=== PATIENT | female | born 1950 | race Caucasian/White ===

== ENCOUNTER 2019-10-01 21:50 | Inpatient (IN) | payer OTHER ==
[~2019-10-01] VITALS: Ht 165.1 cm; Wt 137.2 kg
[~2019-10-01 21:50] MED LIST: ATOR40TA PO; Aspir-Trin325 MG PO; LEVEMIR FL100 UNIT/1 SQ; LIRA0.6P SC; LISI5 PO; METO25ER PO
[2019-10-01 22:35] LABS: Calcium, Ionized (POC) 1.11 mmol/L (1.10-1.46); Chloride (POC) 107 mmol/L (98-108); Creatinine (POC) 1.8 mg/dL (0.6-1.0); Glucose (ISTAT POC) 396 mg/dL (70-99); Hemoglobin (POC) 13.6 g/dL (12.0-16.0); Potassium (POC) 5.2 mmol/L (3.5-5.5); Sodium (POC) 135 mmol/L (135-148); Total CO2 (POC) 20 mmol/L (21-32)
[2019-10-01 22:38] LABS: BASOPHILS ABSOLUTE AUTO 0.02 K/mm3 (0.00-0.23); BASOPHILS PERCENT AUTO 0 % (0-2); EOSINOPHILS PERCENT AUTO 0 % (0-6); Hematocrit 40.5 % (33.0-51.0); Hemoglobin 13.4 g/dL (11.5-16.0); IMMATURE GRAN ABSOLUTE AUTO 0.09 K/mm3 (0.00-0.10); IMMATURE GRAN PERCENT AUTO 1 % (0-1); LYMPHOCYTES ABSOLUTE AUTO 0.49 K/mm3 (0.84-5.20); LYMPHOCYTES PERCENT AUTO 3 % (21-46); MONOCYTES ABSOLUTE AUTO 0.82 K/mm3 (0.16-1.47); MONOCYTES PERCENT AUTO 6 % (4-13); Mean Corpuscular HGB 28.5 pg (26.0-34.0); Mean Corpuscular HGB Conc 33.1 g/dL (31.5-36.5); Mean Corpuscular Volume 86 fL (80-100); Mean Platelet Volume 10.7 fL (9.1-12.4); NEUTROPHILS ABSOLUTE AUTO 13.37 K/mm3 (1.96-9.15); NEUTROPHILS PERCENT AUTO 91 % (41-73); Platelet Count 265 K/mm3 (150-400); RDW Coefficient Variation 16.2 % (11.7-14.2); RDW Standard Deviation 50.1 fL (35.1-46.3); Red Blood Cell Count 4.71 M/mm3 (3.80-5.20); White Blood Cell Count 14.79 K/mm3 (4.00-11.30)
[2019-10-01 22:58] LABS: Alanine Aminotransfer (ALT/SGP 55 U/L (12-78); Albumin, Blood 2.5 g/dL (3.4-5.0); Albumin/Globulin Ratio 0.5 (0.8-1.8); Alk Phos 82 U/L (50-136); Anion Gap 11 mmol/L (6-16); Aspartate Aminotrans (AST/SGOT 286 U/L (12-37); Bilirubin, Total 1.2 mg/dL (0.1-1.0); Blood Urea Nitrogen 45 mg/dL (8-24); Bun/Creatinine Ratio 26.3 (12.0-20.0); CO2, Blood 19 mmol/L (21-32); Calcium, Blood 9.2 mg/dL (8.5-10.1); Chloride, Blood 105 mmol/L (98-108); Creatine Kinase MB 59.4 ng/mL (0.0-3.6); Creatinine, Blood 1.71 mg/dL (0.40-1.00); Ethanol (Alcohol), Blood, Med <3 mg/dL; Free Thyroxine 1.25 ng/dL (0.70-1.60); Globulin, Blood 5.5 g/dL (2.2-4.0); Glomerular Filtration Rate 31 (60-); Glucose, Blood 396 mg/dL (70-99); Potassium, Blood 5.1 mmol/L (3.5-5.5); Sodium, Blood 135 mmol/L (136-145); Troponin I 0.239 ng/mL (0.000-0.040)
[2019-10-01 23:09] LABS: Source, Urine Catheter
[2019-10-01 23:12] LABS: Bilirubin, Urine Neg (Neg); Blood, Urine 5+ (Neg); Glucose Qualitative, Urine 4+ (Neg); Ketones, Urine 1+ (Neg); Leukocyte Esterase, Urine 1+ (Neg); Nitrite, Urine Pos (Neg); Protein, Urine 4+ (Neg); Specific Gravity, Urine 1.015 (1.003-1.022); Urobilinogen, Urine NORM (Normal)
[2019-10-01 23:17] LABS: Triiodothyronine, Free 1.74 pg/mL (2.18-3.98)
[2019-10-01] MEDS ORDERED: JANTOVEN2 MG PO ×3 (23:17→23:33)
[2019-10-01 23:19] LABS: CPK Creatine Kinase 8359 U/L (26-193); Creatine Kinase MB Index 0.7 (0.0-4.0)
[2019-10-01 23:20] LABS: Appearance, Urine Clear (Clear); Color, Urine Amber (P-Yellow)
[2019-10-01] MEDS ORDERED: WARF10 PO (23:20)
[2019-10-01 23:21] LABS: Bacteria Many /hpf; Red Blood Cells, Urine 0-2 /hpf (0-2); Squamous Epithelial Cells Few /hpf (Few)
[2019-10-01] MEDS ORDERED: DULO60 (23:21)
[2019-10-01] MEDS ORDERED: DULO30 (23:22)
[2019-10-01] MEDS ORDERED: ADMELOG SO100 UNIT/1 SC (23:25)
[2019-10-01 23:26] LABS: U Amphetamine Screen Not Detected; U Barbituate Screen Not Detected; U Benzodiazapine Screen Not Detected; U Buprenorphine Screen Not Detected; U Cannabinoids Screen Not Detected; U Cocaine Screen Not Detected; U Methadone Screen Not Detected; U Methamphetamine Screen Not Detected; U Opiates Screen Not Detected; U Oxycodone Screen Not Detected; U Phencyclidine Screen Not Detected; U Propoxyphene Screen Not Detected
[2019-10-01] MEDS ORDERED: INSULANPEN (23:26)
[2019-10-01] MEDS ORDERED: METOPROLOL SUCC25 MG PO (23:31)
[2019-10-01] MEDS ORDERED: WARF10 (23:32)
[2019-10-01] MEDS ORDERED: ADMELOG SO100 UNIT/1 (23:33)
[2019-10-01] MEDS ORDERED: DULO30 PO (23:34)
[2019-10-01] MEDS ORDERED: VICTOZA 3-0.6 MG/0.1 (23:34)
[2019-10-01] MEDS ORDERED: ATORVASTATIN CA40 MG PO (23:35)
[2019-10-01] MEDS ORDERED: PRINIVIL5 MG PO (23:35)
[2019-10-01] MEDS ORDERED: BASAGLAR K100 UNIT/1 SC (23:36)
[2019-10-02 00:59] LABS: International Normalized Ratio 1.14; Prothrombin Time Results 11.9 Sec (9.7-11.5)
[2019-10-02 03:26] LABS: Hemoglobin 11.8 g/dL (11.5-16.0); Mean Corpuscular HGB 28.1 pg (26.0-34.0); Mean Corpuscular HGB Conc 32.8 g/dL (31.5-36.5); Mean Corpuscular Volume 86 fL (80-100); Platelet Count 135 K/mm3 (150-400); RDW Coefficient Variation 16.3 % (11.7-14.2); RDW Standard Deviation 49.9 fL (35.1-46.3); White Blood Cell Count 14.55 K/mm3 (4.00-11.30)
[2019-10-02 03:45] LABS: Alanine Aminotransfer (ALT/SGP 59 U/L (12-78); Albumin, Blood 2.1 g/dL (3.4-5.0); Albumin/Globulin Ratio 0.4 (0.8-1.8); Alk Phos 68 U/L (50-136); Anion Gap 11 mmol/L (6-16); Aspartate Aminotrans (AST/SGOT 309 U/L (12-37); Bilirubin, Total 0.9 mg/dL (0.1-1.0); Blood Urea Nitrogen 45 mg/dL (8-24); Bun/Creatinine Ratio 26.8 (12.0-20.0); CO2, Blood 18 mmol/L (21-32); Calcium, Blood 8.6 mg/dL (8.5-10.1); Chloride, Blood 109 mmol/L (98-108); Creatinine, Blood 1.68 mg/dL (0.40-1.00); Globulin, Blood 4.8 g/dL (2.2-4.0); Glomerular Filtration Rate 32 (60-); Glucose, Blood 320 mg/dL (70-99); Potassium, Blood 4.7 mmol/L (3.5-5.5); Sodium, Blood 138 mmol/L (136-145); Total Protein, Blood 6.9 g/dL (6.4-8.2)
--- NOTE | 2019-10-02 05:18 | NUR ---
AFIB WITH RVR DR. COLLADO NOTIFIED OF COMTINUED AFIB WITH RATE 110-140s. NEW ORDER RECEIVED.
--- NOTE | 2019-10-02 05:28 | NUR ---
ADMIT NOTE: PT C/O WEAKNESS, CONFUSION. FOUND DOWN BY FAMILY MEMBERS FOR UNKNOWN AMT OF TIME. PT IS ALERT AND ORIENTED TO SELF AND FAMILY. LUNG SOUNDS DIM IN BASES. CURRENTLY ON 2L NC, SP02 >90%. ON ADMIT PT IN A-FIB WITH RVR WITH OCC PVCS. SBP HAS HAD A WIDE RANGE FROM 90S-130S. HR TACHY IN THE 130S. BOWEL TONES ARE PRESENT X 4. PER FAMILY LAST BM 09/30/19. TEMP GARCIA IN PLACE DRAINING SMALL AMT OF DARK JOSE CARLOS URINE. ABRASION TO R HIP. DARK DISCOLORATION TO BLE. TOENAILS THICKENED AND LONG. 3 IVS- 20G RAC, 22G L HAND, 20G L FA. NS INFUSING AT 75MLS/HR. FAMILY AT BEDSIDE.
--- NOTE | 2019-10-02 05:40 | NUR ---
CALL PLACED TO DR. COLLADO RE IVF, INSULIN COVERAGE, ABX, NYSTATIN. PER TOBIAS DC NS BOLUS AND GIVE NS AT 75MLS/HR. CHANGE BLOOD SUGAR CHECKS TO Q6 AND GIVE LANTUS NOW. CLARIFIED ABX. PER TOBIAS KEEP ROCEPHIN ONLY ABX.
[2019-10-02 07:21] LABS: Adenovirus Not Detected (NOT DETECT); Bordetella pertussis Not Detected (NOT DETECT); Chlamydophila pneumoniae Not Detected (NOT DETECT); Coronavirus 229E Not Detected (NOT DETECT); Coronavirus HKU1 Not Detected (NOT DETECT); Coronavirus NL63 Not Detected (NOT DETECT); Coronavirus OC43 Not Detected (NOT DETECT); Human Metapneumovirus Not Detected (NOT DETECT); Human Rhinovirus/Enterovirus Not Detected (NOT DETECT); Influenza A Not Detected (NOT DETECT); Influenza A/2009-H1 Not Detected (NOT DETECT); Influenza A/H1 Not Detected (NOT DETECT); Influenza A/H3 Not Detected (NOT DETECT); Influenza B Not Detected (NOT DETECT); Mycoplasma pneumoniae Not Detected (NOT DETECT); Parainfluenza Virus 1 Not Detected (NOT DETECT); Parainfluenza Virus 2 Not Detected (NOT DETECT); Parainfluenza Virus 3 Not Detected (NOT DETECT); Parainfluenza Virus 4 Not Detected (NOT DETECT); Respiratory Syncytial Virus Not Detected (NOT DETECT)
--- NOTE | 2019-10-02 07:43 | NUR ---
ASSESSMENT- PT ASLEEP, AWAKENS TO NAME, ABLE TO ANSWER BRIEF QUESTIONS WITH ONE WORD ANSWERS. BACK TO SLEEP QUICKLY. PUPILS SMALL, REACTIVE. MOVES EXTREMITIES EXCEPT NO MOVEMENT LEFT LEG. STATES WILL OPEN EYES WHEN ASKED BUT DOES NOT. ABLE TO MOVE TO COMMAND, VERY WEAK. ASSISTANT PROFESSOR OF SURGERY VERY WEAK. NS AT 75 CC/HR. UO VIA GARCIA. BEDSIDE ULTRASOUND BEING DONE
--- NOTE | 2019-10-02 08:50 | NUR ---
REPOSITIONED FOR ECHO. PREFERS TO SLEEP, DOES AWAKEN TO NAME, OPENS EYES. VSS
--- NOTE | 2019-10-02 10:12 | NUR ---
ECHOCARDIOGRAM COMPLETED
--- NOTE | 2019-10-02 11:18 | NUR ---
BATH, LINEN CHANGE DONE. SKIN REDDENED UNDER FOLDS, NYSTATIN APPLIED. POOR HYGIENE. MORE AWAKE, EYES OPEN SPONTANEOUSLY. ABLE TO ANSWER IS IN HOSPITAL. DENIES PAIN. UPDATE TO DR. TERRY-ORDERS FOR HEPARIN GTT. UNABLE TO PERFORM SWALLOW TEST-UNABLE TO PARTICIPATE. ORAL CARE DONE
--- NOTE | 2019-10-02 12:23 | NUR ---
HEPARIN GTT STARTED PER ORDERS. DR. LIPSCOMB CALLED UNIT-PT WAS DISCHARGED FROM [facility] IN [place] SO HOSPITALIST TO ASSUME CARE. NOTIFIED DR. GIRALDO AND UPDATE GIVEN.
--- NOTE | 2019-10-02 12:42 | NUR ---
DR. GIRALDO HERE-UPDATED. PT UNCHANGED. OXYGEN SATURATIONS 99%-REMOVED NASAL CANNULA
--- NOTE | 2019-10-02 15:16 | NUR ---
PT WITH NEURO UNCHANGED. ORAL CARE DONE, REPOSITIONED.VSS
--- NOTE | 2019-10-02 16:00 | NUR ---
MEDICATION CLARIFICATION- FAMILY STATES DO NOT KNOW COUMADIN DOSAGE. PT UNABLE TO STATE DOSE
--- NOTE | 2019-10-02 16:10 | NUR ---
UPDATE TO PT'S DIL CL[place].
--- NOTE | 2019-10-02 17:55 | NUR ---
PT AWAKENS EASILY TO NAME, BACK TO SLEEP QUICKLY. ATTEMPT TO WEAN OFF NASAL CANNULA-SATURATIONS DECREASED TO 88%-TO 98% WITH CANNULA. HEPARIN GTT INFUSING AT 13 UNITS/KG/HR AND NS 75 CC/HR. UO MARGINAL, JOSE CARLOS VIA GARCIA. CONTINUE AFIB RATE 100-110'S. BP STABLE.
[2019-10-03 03:56] LABS: BASOPHILS ABSOLUTE AUTO 0.04 K/mm3 (0.00-0.23); BASOPHILS PERCENT AUTO 0 % (0-2); EOSINOPHILS ABSOLUTE AUTO 0.12 K/mm3 (0.00-0.68); EOSINOPHILS PERCENT AUTO 1 % (0-6); Hematocrit 33.4 % (33.0-51.0); Hemoglobin 10.6 g/dL (11.5-16.0); IMMATURE GRAN ABSOLUTE AUTO 0.05 K/mm3 (0.00-0.10); IMMATURE GRAN PERCENT AUTO 1 % (0-1); LYMPHOCYTES ABSOLUTE AUTO 1.06 K/mm3 (0.84-5.20); LYMPHOCYTES PERCENT AUTO 11 % (21-46); MONOCYTES ABSOLUTE AUTO 1.04 K/mm3 (0.16-1.47); MONOCYTES PERCENT AUTO 10 % (4-13); Mean Corpuscular HGB 27.5 pg (26.0-34.0); Mean Corpuscular HGB Conc 31.7 g/dL (31.5-36.5); Mean Corpuscular Volume 87 fL (80-100); Mean Platelet Volume 11.3 fL (9.1-12.4); NEUTROPHILS ABSOLUTE AUTO 7.78 K/mm3 (1.96-9.15); NEUTROPHILS PERCENT AUTO 77 % (41-73); Platelet Count 217 K/mm3 (150-400); RDW Coefficient Variation 16.9 % (11.7-14.2); RDW Standard Deviation 52.2 fL (35.1-46.3); Red Blood Cell Count 3.85 M/mm3 (3.80-5.20); White Blood Cell Count 10.09 K/mm3 (4.00-11.30)
[2019-10-03 04:12] LABS: International Normalized Ratio 1.11; Prothrombin Time Results 11.7 Sec (9.7-11.5)
[2019-10-03 04:13] LABS: Albumin, Blood 1.9 g/dL (3.4-5.0); Albumin/Globulin Ratio 0.4 (0.8-1.8); Bilirubin, Total 0.5 mg/dL (0.1-1.0); Bun/Creatinine Ratio 27.3 (12.0-20.0); Calcium, Blood 8.5 mg/dL (8.5-10.1); Creatinine, Blood 1.76 mg/dL (0.40-1.00); Globulin, Blood 4.7 g/dL (2.2-4.0); Magnesium, Blood 2.1 mg/dL (1.6-2.4); Potassium, Blood 4.2 mmol/L (3.5-5.5); Total Protein, Blood 6.6 g/dL (6.4-8.2)
--- NOTE | 2019-10-03 05:45 | NUR ---
SHIFT SUMMARY PATIENT SLEPT WELL THROGUH NIGHT. VSS. INCREASED HR WITH ACTIVITY, WOULD OCASSIONALY AWAKEN AND ATTEMPT TO REMOVE CORDS, MONITORING EQUIPMENT. EASILY REDIRECTABLE. NO WORSENING OF NEUROLOGICAL SYMPTOMS, SPEECH SEEMS MORE ORGANIZED, PATIENT IN BETTER SPIRITS. WILL CONTINUE TO MONITOR.
--- NOTE | 2019-10-03 10:27 | NUR ---
0700-ASSUMED CARE OF PT. PT IS ALERT AND ORIENTED TO SELF, FOLLOWING COMMANDS. FORGETFUL. PT IS ABLE TO RAISE ARMS EQUALLY. LEFT LEG HAS MORE WEAKNESS THAN THE RIGHT. 0730-SEEN BY DR. GIRALDO, UPDATED HER OF PT'S STATUS. THIS TIME PT IS AWARE OF HER LOCATION, DATE AND SELF. 0915-JAYDA WITH PHYSICAL AND OCCUPATIONAL THERAPY CAME BY TO EVALUATE AND TREAT PATIENT. 1000-PT IS SITTING ON THE CHAIR AT THIS TIME. ANGELA WITH SPEECH THERAPIST AT BEDSIDE EVALUATING PT. 1015-FAMILY AT BEDSIDE, UPDATED THEM OF PT'S STATUS.
--- NOTE | 2019-10-03 12:19 | NUR ---
PT HAD AN EPISODE OF VOMITING, MEDICATED WITH ZONFRAN ORDERED. 1220-PT STATED FEELING BETTER AFTER RECEIVING ZOFRAN. PT IS EATING LUNCH AT THIS TIME.
--- NOTE | 2019-10-03 17:20 | NUR ---
DR. GIRALDO WAS NOTIFIED THAT PT WAS PLACED ON RESTRAINTS DUE TO PT PULLING LINES, TUBES.
--- NOTE | 2019-10-03 18:27 | NUR ---
PT IS AWAKE NOW. EATING DINNER. PT WAS POSITIONED TO A CHOWDHURY'S POSITION FOR HER TO EAT. UPDATED DAUGHTER OF PT'S STATUS. PT SILL ON HEPARIN DRIP @ 19 UNITS/KG/HR WITH WEIGHT OF 88 KG. PT IS STILL ON AFIB WITH HR FROM LOW 100s TO 140s. PT WAS ABLE TO SIT ON THE CHAIR TODAY.
--- NOTE | 2019-10-04 00:09 | NUR ---
19:35 10/03 OBTAINED ORDER FOR BILATERAL SOFT WRIST RESTRAINTS, PATIENT PULLED IV OUT OF RIGHT FOREARM WITH LEFT HAND, HAD PULLED ALL MONITORING CABLES OUT OF MONITOR, AND WAS PULLING AT GARCIA CATHETER. NO BLOOD NOTED AROUND NOR IN GARCIA. ATTEMPTED REDIRECTION, EDUCATING ON NEED OF LINES, NO AVAIL. VSS. WILL CONTINUE TO MONITOR.
--- NOTE | 2019-10-04 03:34 | NUR ---
PATIENT TRANSFERRED TO PCU RM. 4 TO [facility] CERVANTES. VSS. NO C/O PAIN. CPAP TAKEN TO NEW ROOM, APPLIED. MEDS VERIFIED WITH RN. IT HAS BEEN A PLEASURE TAKING CARE OF THIS PATIENT.
[2019-10-04 04:09] LABS: International Normalized Ratio 1.09; Prothrombin Time Results 11.5 Sec (9.7-11.5)
--- NOTE | 2019-10-04 04:24 | NUR ---
PT RECEIVED TRANSFER FROM ICU. ALERT AND ABLE TO ANSWER SHORT QUESTIONS.EYES TRACK APPROPRIATELY.L SIDE EFFECT PER CVA DX.HEP GTT INFUSING TO CLEAR SITE AT 33.4 ML/HR.PT REQUIRING CPAP WITH FALLING ASLEEP BASELINE USE DUE TO HX SLEEP APNEA. NO O2 BLEED IN AT THIS TIME. CONT PULSE OX CURRENTLY SATS 93% GARCIA DRAINING WITH [address] STAT LOCK PLACED. PT WAS REPORTED TO HAVE HAD RESTRAINTS UNTIL 0250 PRIOR TO TRANSFER. WAS PULLING AT LINES AND GARCIA. CURRENTLY COBAN TO LINE SITE. NOT PULLING. SLEEPING WHEN UNDISTURBED. NOTED MULTIPLE ABRASIONS AND SCABS. [place] LIKE TOENAILS.
--- NOTE | 2019-10-04 04:53 | NUR ---
CONFIRMED HEPARIN RATE WITH TREMAYNE PHARMACIST OF 35.2 ML/HR.CURRENT SET TR @ 35.2 ML/HR CHECKED WITH BHARAT HODGES RN.
--- NOTE | 2019-10-04 07:16 | NUR ---
HEPARIN GTT VERIFIED WITH [facility] MONET AT HANDOFF. PT IS RESTING IN BED WITH CPAP IN PLACE. DENIES ANY NEEDS CURRENTLY
--- NOTE | 2019-10-04 07:50 | NUR ---
SUMMARY PT INCREASING IN CONFUSION AND THIS AM. PICKING AT TUBES AND CPAP. REORIENTED TO SITUATION AND REPLACED CPAP,BIOX PROBE, AND TELE. SO FAR HEP DRIP INFUSING TO CLEAR SITE.RAN TUBING THROUGH GOWN SLEEVE TO CONCEAL.
[2019-10-04 07:52] LABS: BASOPHILS ABSOLUTE AUTO 0.03 K/mm3 (0.00-0.23); BASOPHILS PERCENT AUTO 0 % (0-2); EOSINOPHILS ABSOLUTE AUTO 0.14 K/mm3 (0.00-0.68); EOSINOPHILS PERCENT AUTO 2 % (0-6); Hematocrit 33.8 % (33.0-51.0); Hemoglobin 10.6 g/dL (11.5-16.0); IMMATURE GRAN ABSOLUTE AUTO 0.04 K/mm3 (0.00-0.10); IMMATURE GRAN PERCENT AUTO 1 % (0-1); LYMPHOCYTES ABSOLUTE AUTO 1.05 K/mm3 (0.84-5.20); LYMPHOCYTES PERCENT AUTO 13 % (21-46); MONOCYTES ABSOLUTE AUTO 0.87 K/mm3 (0.16-1.47); MONOCYTES PERCENT AUTO 11 % (4-13); Mean Corpuscular HGB 27.9 pg (26.0-34.0); Mean Corpuscular HGB Conc 31.4 g/dL (31.5-36.5); Mean Corpuscular Volume 89 fL (80-100); Mean Platelet Volume 12.2 fL (9.1-12.4); NEUTROPHILS PERCENT AUTO 74 % (41-73); Platelet Count 207 K/mm3 (150-400); RDW Coefficient Variation 17.3 % (11.7-14.2); RDW Standard Deviation 55.3 fL (35.1-46.3); White Blood Cell Count 8.13 K/mm3 (4.00-11.30)
[2019-10-04 08:01] LABS: Albumin, Blood 1.8 g/dL (3.4-5.0); Albumin/Globulin Ratio 0.4 (0.8-1.8); Bilirubin, Total 0.5 mg/dL (0.1-1.0); Bun/Creatinine Ratio 30.5 (12.0-20.0); Calcium, Blood 8.4 mg/dL (8.5-10.1); Creatinine, Blood 1.51 mg/dL (0.40-1.00); Globulin, Blood 4.6 g/dL (2.2-4.0); Potassium, Blood 4.3 mmol/L (3.5-5.5); Total Protein, Blood 6.4 g/dL (6.4-8.2)
--- NOTE | 2019-10-04 17:41 | NUR ---
PT WAS EATING DINNER WHEN SHE STARTED TO COUGH/CHOCK ON A PIECE OF POTATO. WHEN PT WAS COUGHING HER O2 SAT'S WERE IN THE MID 80'S. ONCE SHE STOPPED COUGHING HER O2 RETURNED TO BASELINE MID 90'S ON ROOM AIR. DR GIRALDO WAS NOTIFIED OF INCIDENT AND ORDERS TO PLACE NPO UNTIL SPEECH SEES HER RECEIVED. PRIOR TO INCEDENT REPORT WAS GIVEN TO CAL[facility] GROSS ON MEDICAL FLOOR. CALIXTO GROSS WAS UPDATED ON THE STATUS AND PT WAS TRANSPORTED VIA BED TO ROOM 325. BELONGINGS GATHERED AND SENT WITH PT.
--- NOTE | 2019-10-04 18:02 | NUR ---
SHIFT SUMMARY: PT WAS TRANSFERRED FROM PCU IN HER BED. SHE WAS ASSISTED TO HER ROOM AND ORIENTED TO THE NURSING STAFF. PT IS A/O TO HERSELF AND HER FAMILY AND SITUATION. PER REPORT PT WAS COUGHING ON HER DINNER BEFORE COMING UP TO THE UNTI AND THE PCU NURSE NOTIFIED THE DOCTOR WHO GAVE ORDERS FOR THE PT TO BE NPO UNTIL ST EVALS HER TOMORROW. IV HEPARIN CONTINUES TO RUN ORDERED. PT IS RESTING IN BED AND IS ABLE TO MAKE HER NEEDS KNOWN. SHE HAS HER CALL LIGHT IN REACH.
--- NOTE | 2019-10-05 04:52 | NUR ---
SHIFT SUMMARY PATIENT HAS SOMEWHAT OF A FLAT AFFECT AND IS ALERT AND ORIENTED FOR THE MOST PART. SHE WAS ABLE TO SLEEP WELL MOST OF THE NIGHT BUT AROUND 0200 HER O2 SATS BEGAN TO DROP A LITTLE DUE TO HER SLEEP APNEA SO I ASKED RT TO SET HER UP ON THE CPAP IN HER ROOM.IV IN LEFT HAND PATENT AND FLUSHED. IV IN LEFT FOREARM PATENT AND INFUSING WITH HEPARIN AT A RATE OF 22MG/KG/HR OR 38.7 ML/HR. BED IN LOWEST POSITION WITH WHEELS LOCKED. CALL LIGHT WITHIN REACH. REPORT GIVEN TO ONCOMING RN.
[2019-10-05 05:16] LABS: International Normalized Ratio 1.13; Prothrombin Time Results 11.8 Sec (9.7-11.5)
[2019-10-05 05:41] LABS: Albumin, Blood 1.7 g/dL (3.4-5.0); Albumin/Globulin Ratio 0.4 (0.8-1.8); Bilirubin, Total 0.7 mg/dL (0.1-1.0); Bun/Creatinine Ratio 32.3 (12.0-20.0); Calcium, Blood 8.3 mg/dL (8.5-10.1); Creatinine, Blood 1.27 mg/dL (0.40-1.00); Globulin, Blood 4.2 g/dL (2.2-4.0); Potassium, Blood 4.2 mmol/L (3.5-5.5); Total Protein, Blood 5.9 g/dL (6.4-8.2)
--- NOTE | 2019-10-05 10:24 | NUR ---
PATIENT IS ALERT AND ORIENTED TO SELF, FAMILY AND SITUATION. SHE DOES HAVE EPISODES OF FORGETFULLNESS. SHE IS NPO. PATIENT IS COOPERATIVE WITH CARE. SHE IS INCONTINENT OF URINE, 3PA TO CHANGE ATTEND AND ROLE PATIENT. SHE IS AWAKE NOW, WATCHING TV. THE HEAD OF THE BED IS ELEVATED. ON CONTINUOUS PULSE OXIMETER WITH SATS OF 96% AND A HR RANGING FROM 90 BPM TO 120 BPM. MORNING MEDICATIONS WERE GIVEN THIS MORNING WITH SIPS OF WATER, THE PATIENT WAS SITTING IN BED IN THE CHAIR POSITION. PATIENT TOLERATED THE SMALL SIPS OF WATER BUT DOES STRUGGLE TO SWALLOW THE PILLS. WILL CONTINUE TO MONITOR.
--- NOTE | 2019-10-05 17:04 | NUR ---
PATIENT IS ALERT AND ORIENTED WITH PERIODS OF FORGETFULLNESS. SHE WEARS A CPAP WITH 2L 02 BLED INTO IT. HEPARIN DRIP WAS DC'D TODAY. PATIENT IS ON COUMADIN. MECHANICAL SOFT DIET, FEEDER, ASPIRATION PRECAUTIONS. PATIENT IS INCONTINENT, ATTENDS IN PLACE. Q2H TURNS. ST TO SEE PATIENT TOMORROW. WILL CONTINUE TO MONITOR.
[2019-10-06 05:38] LABS: BASOPHILS ABSOLUTE AUTO 0.04 K/mm3 (0.00-0.23); BASOPHILS PERCENT AUTO 1 % (0-2); EOSINOPHILS ABSOLUTE AUTO 0.29 K/mm3 (0.00-0.68); EOSINOPHILS PERCENT AUTO 4 % (0-6); Hematocrit 33.5 % (33.0-51.0); Hemoglobin 10.6 g/dL (11.5-16.0); IMMATURE GRAN ABSOLUTE AUTO 0.03 K/mm3 (0.00-0.10); IMMATURE GRAN PERCENT AUTO 0 % (0-1); LYMPHOCYTES ABSOLUTE AUTO 0.98 K/mm3 (0.84-5.20); LYMPHOCYTES PERCENT AUTO 14 % (21-46); MONOCYTES ABSOLUTE AUTO 0.93 K/mm3 (0.16-1.47); MONOCYTES PERCENT AUTO 13 % (4-13); Mean Corpuscular HGB 27.8 pg (26.0-34.0); Mean Corpuscular HGB Conc 31.6 g/dL (31.5-36.5); Mean Corpuscular Volume 88 fL (80-100); Mean Platelet Volume 11.1 fL (9.1-12.4); NEUTROPHILS ABSOLUTE AUTO 4.76 K/mm3 (1.96-9.15); NEUTROPHILS PERCENT AUTO 68 % (41-73); Platelet Count 252 K/mm3 (150-400); RDW Coefficient Variation 17.2 % (11.7-14.2); RDW Standard Deviation 54.4 fL (35.1-46.3); Red Blood Cell Count 3.81 M/mm3 (3.80-5.20); White Blood Cell Count 7.03 K/mm3 (4.00-11.30)
--- NOTE | 2019-10-06 05:38 | NUR ---
SHIFT SUMMARY PATIENT ALERT AND ORIENTED. WORE HER CPAP MOST OF THE NIGHT WHILE SLEEPING. SHE HAD NO COMPLAINTS OF PAIN. IVS PATENT AND FLUSHED. BED IN LOWEST POSITION WITH WHEELS LOCKED. CALL LIGHT WITHIN REACH. REPORT GIVEN TO ONCOMING CALIXTO.
[2019-10-06 05:52] LABS: International Normalized Ratio 1.4; Prothrombin Time Results 14.4 Sec (9.7-11.5)
[2019-10-06 06:02] LABS: Albumin, Blood 1.8 g/dL (3.4-5.0); Albumin/Globulin Ratio 0.4 (0.8-1.8); Bilirubin, Total 0.8 mg/dL (0.1-1.0); Bun/Creatinine Ratio 31.5 (12.0-20.0); Calcium, Blood 8.6 mg/dL (8.5-10.1); Creatinine, Blood 1.11 mg/dL (0.40-1.00); Globulin, Blood 4.5 g/dL (2.2-4.0); Potassium, Blood 4.4 mmol/L (3.5-5.5); Total Protein, Blood 6.3 g/dL (6.4-8.2)
--- NOTE | 2019-10-06 11:30 | NUR ---
CONTINUOUS BIOX PT FELL ASLEEP AND DESATURATED TO 80%, CPAP PLACED ON. CURRENTLY SATURATING AT >92% WITH CPAP AND 1LPM BLED IN.
--- NOTE | 2019-10-06 14:09 | NUR ---
FAMILY NOTIFY DAUGHTER (DEANN) NOTIFIED OF PT DISCHARGING TO [facility], DEANN IS ON BOARD WITH PLAN.
[2019-10-06] MEDS ORDERED: ASPI81CH PO (15:09)
[2019-10-06] MEDS ORDERED: DOCU100 PO (15:10)
[2019-10-06] MEDS ORDERED: FAMO20 PO (15:10)
[2019-10-06] MEDS ORDERED: BISA10S PR (15:10)
[2019-10-06] MEDS ORDERED: Pedi-Dri 100,0060 GM TOP (15:11)
[2019-10-06] MEDS ORDERED: SENN187 PO (15:12)
--- NOTE | 2019-10-06 15:48 | NUR ---
Discharge Summary Patient discharged to [facility]. Meds reconciled, report given to receiving nurse Mirna. Belongings will be sent with patient. Daughter (Jaqui) notified of discharge to SNF. Pt will be transported via gurney. Pt remains A/O, compliant with CPAP use. Will continue to monitor until transport arrives.
--- NOTE | 2019-10-06 17:23 | NUR ---
Personal Belongings Items were bagged and ready to go; unfortunately, personal belongings were left behind. Pt sticker attached and bag placed in usual left-behind area on Medical floor. Jaqui (daughter) notified, will p/u tomorrow before she goes visit patient at [facility].
== END 2019-10-06 16:16 | DRG 65 ==
LOC: ER 21:50 → ICUW 10-02 02:32 → MEDS 10-02 02:32 → ICUW 10-02 02:33 → PCU 10-04 03:36 → MEDS 10-04 17:41
PROVIDERS: Emergency Medicine; Internal Medicine; ADMIT Internal Medicine
DX: I63.50 Cerebral infarction due to unspecified occlusion or stenosis of unspecified cerebral artery (principal); M62.82 Rhabdomyolysis; E87.2 Acidosis; N17.9 Acute kidney failure, unspecified; I48.20 Chronic atrial fibrillation, unspecified; Z68.43 Body mass index [BMI] 50.0-59.9, adult; I24.8 Other forms of acute ischemic heart disease; Z79.4 Long term (current) use of insulin; Z79.82 Long term (current) use of aspirin; K21.9 Gastro-esophageal reflux disease without esophagitis; G47.33 Obstructive sleep apnea (adult) (pediatric); E66.01 Morbid (severe) obesity due to excess calories; Z86.73 Personal history of transient ischemic attack (TIA), and cerebral infarction without residual deficits
CPT/HCPCS: 0099U; 36415; 51702; 70450; 70544; 70551; 71045; 80047; 80053; 81001; 82140; 82550; 82553; 82947; 83605; 83735; 84439; 84443; 84481; 84484; 85014; 85025; 85027; 85610; 85730; 86850; 86900; 86901; 87040; 87086; 90686; 92526; 92610; 93005; 93010; 93306; 93880; 94660; 94762; 96365; 96375; 97162; 97166; 97530; 97535; 99285-25; G0008; G0480; J0696; J1644; J1650; J2405; J7030

== ENCOUNTER → 2019-12-23 | Outpatient (CLI) | payer OTHER ==
[~2019-12-23] MED LIST changes: +ADMELOG SO100 UNIT/1; +ADMELOG SO100 UNIT/1 SC; +ASPI81CH PO; +ATORVASTATIN CA40 MG PO; +BASAGLAR K100 UNIT/1 SC; +BISA10S PR; +DOCU100 PO; +DULO30; +DULO30 PO; +DULO60; +FAMO20 PO; +INSULANPEN; +JANTOVEN2 MG PO; +METOPROLOL SUCC25 MG PO; +PRINIVIL5 MG PO; +Pedi-Dri 100,0060 GM TOP; +SENN187 PO; +VICTOZA 3-0.6 MG/0.1; +WARF10; +WARF10 PO
[2019-12-23 09:48] LABS: International Normalized Ratio 2.32; Prothrombin Time Results 23.7 Sec (9.7-11.5)
[2019-12-23 10:27] LABS: Bun/Creatinine Ratio 22.1 (12.0-20.0); Calcium, Blood 8.7 mg/dL (8.5-10.1); Potassium, Blood 4.5 mmol/L (3.5-5.5)
== END | disposition home or self-care (01) ==
LOC: LAB RH 08:01 → EDSTATUS 10:23 → LAB RH 10:24
PROVIDERS: Family Medicine
DX: I48.20 Chronic atrial fibrillation, unspecified (principal)
CPT/HCPCS: 36415; 80048; 85610

== ENCOUNTER → 2019-12-30 | Outpatient (CLI) | payer OTHER ==
[2019-12-30 11:35] LABS: International Normalized Ratio 3.8; Prothrombin Time Results 37.7 Sec (9.7-11.5)
[2019-12-30 11:39] LABS: Calcium, Blood 8.3 mg/dL (8.5-10.1); Creatinine, Blood 1.05 mg/dL (0.40-1.00); Potassium, Blood 4.3 mmol/L (3.5-5.5)
== END | disposition home or self-care (01) ==
LOC: LAB RH 09:07 → EDSTATUS 10:26
PROVIDERS: Family Medicine
DX: I11.9 Hypertensive heart disease without heart failure (principal)
CPT/HCPCS: 36415; 80048; 85610

== ENCOUNTER → 2020-01-06 | Outpatient (CLI) | payer OTHER ==
[2020-01-06 09:28] LABS: Bun/Creatinine Ratio 20.6 (12.0-20.0); Calcium, Blood 8.8 mg/dL (8.5-10.1); Creatinine, Blood 1.02 mg/dL (0.40-1.00); Potassium, Blood 4.2 mmol/L (3.5-5.5)
[2020-01-06 09:33] LABS: International Normalized Ratio 2.5; Prothrombin Time Results 25.4 Sec (9.7-11.5)
== END ==
LOC: LAB RH 07:38 → EDSTATUS 11:30
PROVIDERS: Family Medicine
DX: I48.20 Chronic atrial fibrillation, unspecified (principal)
CPT/HCPCS: 36415; 80048; 85610

== ENCOUNTER → 2020-01-12 | Outpatient (CLI) | payer OTHER ==
[2020-01-12 09:10] LABS: International Normalized Ratio 2.41; Prothrombin Time Results 24.5 Sec (9.7-11.5)
[2020-01-12 09:14] LABS: Anion Gap 7 mmol/L (6-16); Blood Urea Nitrogen 21 mg/dL (8-24); Bun/Creatinine Ratio 21.6 (12.0-20.0); CO2, Blood 29 mmol/L (21-32); Calcium, Blood 8.5 mg/dL (8.5-10.1); Chloride, Blood 106 mmol/L (98-108); Creatinine, Blood 0.97 mg/dL (0.40-1.00); Glomerular Filtration Rate >60 (60-); Glucose, Blood 87 mg/dL (70-99); Sodium, Blood 142 mmol/L (136-145)
== END | disposition home or self-care (01) ==
LOC: LAB RH 07:37 → EDSTATUS 13:29
PROVIDERS: Family Medicine
DX: I63.50 Cerebral infarction due to unspecified occlusion or stenosis of unspecified cerebral artery (principal)
CPT/HCPCS: 36415; 80048; 85610

== ENCOUNTER → 2020-01-19 | Outpatient (CLI) | payer OTHER ==
[2020-01-19 11:57] LABS: Anion Gap 5 mmol/L (6-16); Blood Urea Nitrogen 20 mg/dL (8-24); Bun/Creatinine Ratio 21.1 (12.0-20.0); CO2, Blood 30 mmol/L (21-32); Calcium, Blood 9.1 mg/dL (8.5-10.1); Chloride, Blood 105 mmol/L (98-108); Creatinine, Blood 0.95 mg/dL (0.40-1.00); Glomerular Filtration Rate >60 (60-); Glucose, Blood 112 mg/dL (70-99); Potassium, Blood 4.6 mmol/L (3.5-5.5); Sodium, Blood 140 mmol/L (136-145)
[2020-01-19 12:02] LABS: Prothrombin Time Results 40.3 Sec (9.7-11.5)
[2020-01-19 12:17] LABS: International Normalized Ratio 4.08
== END | disposition home or self-care (01) ==
LOC: LAB RH 09:47 → EDSTATUS 11:28
PROVIDERS: Family Medicine
DX: I63.50 Cerebral infarction due to unspecified occlusion or stenosis of unspecified cerebral artery (principal); I10 Essential (primary) hypertension
CPT/HCPCS: 80048; 85610

== ENCOUNTER → 2020-01-26 | Outpatient (CLI) | payer OTHER ==
[2020-01-26 12:20] LABS: International Normalized Ratio 2.32; Prothrombin Time Results 23.7 Sec (9.7-11.5)
[2020-01-26 15:25] LABS: Anion Gap 4 mmol/L (6-16); Blood Urea Nitrogen 25 mg/dL (8-24); Bun/Creatinine Ratio 26.7 (12.0-20.0); CO2, Blood 29 mmol/L (21-32); Calcium, Blood 8.7 mg/dL (8.5-10.1); Chloride, Blood 106 mmol/L (98-108); Creatinine, Blood 0.94 mg/dL (0.40-1.00); Glomerular Filtration Rate >60 (60-); Glucose, Blood 127 mg/dL (70-99); Potassium, Blood 4.8 mmol/L (3.5-5.5); Sodium, Blood 139 mmol/L (136-145)
== END | disposition home or self-care (01) ==
LOC: EDSTATUS 11:04 → LAB RH 11:16
PROVIDERS: Family Medicine
DX: I48.20 Chronic atrial fibrillation, unspecified (principal)
CPT/HCPCS: 80048; 85610

== ENCOUNTER → 2020-02-02 | Outpatient (CLI) | payer OTHER ==
[2020-02-02 15:30] LABS: International Normalized Ratio 1.86; Prothrombin Time Results 19.2 Sec (9.7-11.5)
[2020-02-02 18:41] LABS: Anion Gap 5 mmol/L (6-16); Blood Urea Nitrogen 17 mg/dL (8-24); Bun/Creatinine Ratio 19.5 (12.0-20.0); CO2, Blood 30 mmol/L (21-32); Calcium, Blood 8.8 mg/dL (8.5-10.1); Chloride, Blood 105 mmol/L (98-108); Creatinine, Blood 0.87 mg/dL (0.40-1.00); Glomerular Filtration Rate >60 (60-); Glucose, Blood 101 mg/dL (70-99); Potassium, Blood 3.9 mmol/L (3.5-5.5); Sodium, Blood 140 mmol/L (136-145)
== END | disposition home or self-care (01) ==
LOC: LAB RH 10:50 → EDSTATUS 12:42
PROVIDERS: Family Medicine
DX: I48.20 Chronic atrial fibrillation, unspecified (principal); I63.50 Cerebral infarction due to unspecified occlusion or stenosis of unspecified cerebral artery; E11.9 Type 2 diabetes mellitus without complications
CPT/HCPCS: 80048; 85610

== ENCOUNTER → 2020-02-09 | Outpatient (CLI) | payer OTHER ==
[2020-02-09 10:45] LABS: Mean Corpuscular HGB 27.1 pg (26.0-34.0); Mean Corpuscular HGB Conc 30.6 g/dL (31.5-36.5); Mean Corpuscular Volume 89 fL (80-100); Mean Platelet Volume 12.4 fL (9.1-12.4); Platelet Count 225 K/mm3 (150-400); RDW Coefficient Variation 16.4 % (11.7-14.2); RDW Standard Deviation 53.4 fL (35.1-46.3); Red Blood Cell Count 4.06 M/mm3 (3.80-5.20)
[2020-02-09 10:56] LABS: International Normalized Ratio 1.79; Prothrombin Time Results 18.5 Sec (9.7-11.5)
[2020-02-09 11:02] LABS: Alanine Aminotransfer (ALT/SGP 11 U/L (12-78); Albumin/Globulin Ratio 0.4 (0.8-1.8); Alk Phos 84 U/L (50-136); Anion Gap 8 mmol/L (6-16); Aspartate Aminotrans (AST/SGOT 29 U/L (12-37); Bilirubin, Total 0.8 mg/dL (0.1-1.0); Blood Urea Nitrogen 18 mg/dL (8-24); Bun/Creatinine Ratio 20.2 (12.0-20.0); CO2, Blood 26 mmol/L (21-32); Calcium, Blood 8.5 mg/dL (8.5-10.1); Chloride, Blood 105 mmol/L (98-108); Creatinine, Blood 0.89 mg/dL (0.40-1.00); Globulin, Blood 5.6 g/dL (2.2-4.0); Glomerular Filtration Rate >60 (60-); Glucose, Blood 135 mg/dL (70-99); Potassium, Blood 4.3 mmol/L (3.5-5.5); Sodium, Blood 139 mmol/L (136-145); Total Protein, Blood 7.6 g/dL (6.4-8.2)
== END ==
LOC: LAB RH 09:15 → EDSTATUS 13:16
PROVIDERS: Family Medicine
DX: I63.50 Cerebral infarction due to unspecified occlusion or stenosis of unspecified cerebral artery (principal)
CPT/HCPCS: 80053; 85027; 85610

== ENCOUNTER → 2020-02-16 | Outpatient (CLI) | payer OTHER ==
[2020-02-16 09:12] LABS: Anion Gap 8 mmol/L (6-16); Blood Urea Nitrogen 23 mg/dL (8-24); Bun/Creatinine Ratio 24.2 (12.0-20.0); CO2, Blood 30 mmol/L (21-32); Calcium, Blood 8.7 mg/dL (8.5-10.1); Chloride, Blood 103 mmol/L (98-108); Creatinine, Blood 0.95 mg/dL (0.40-1.00); Glomerular Filtration Rate >60 (60-); Glucose, Blood 139 mg/dL (70-99); Potassium, Blood 4.3 mmol/L (3.5-5.5); Sodium, Blood 141 mmol/L (136-145)
[2020-02-16 09:18] LABS: International Normalized Ratio 2.01; Prothrombin Time Results 20.7 Sec (9.7-11.5)
== END | disposition home or self-care (01) ==
LOC: LAB RH 08:41 → EDSTATUS 09:33
PROVIDERS: Family Medicine
DX: I11.9 Hypertensive heart disease without heart failure (principal); I63.50 Cerebral infarction due to unspecified occlusion or stenosis of unspecified cerebral artery
CPT/HCPCS: 80048; 85610

== ENCOUNTER → 2020-02-23 | Outpatient (CLI) | payer OTHER ==
[2020-02-23 13:05] LABS: BASOPHILS ABSOLUTE AUTO 0.03 K/mm3 (0.00-0.23); BASOPHILS PERCENT AUTO 1 % (0-2); EOSINOPHILS ABSOLUTE AUTO 0.19 K/mm3 (0.00-0.68); EOSINOPHILS PERCENT AUTO 3 % (0-6); Hematocrit 35.7 % (33.0-51.0); Hemoglobin 10.8 g/dL (11.5-16.0); IMMATURE GRAN ABSOLUTE AUTO 0.01 K/mm3 (0.00-0.10); IMMATURE GRAN PERCENT AUTO 0 % (0-1); LYMPHOCYTES ABSOLUTE AUTO 0.59 K/mm3 (0.84-5.20); LYMPHOCYTES PERCENT AUTO 11 % (21-46); MONOCYTES ABSOLUTE AUTO 0.61 K/mm3 (0.16-1.47); MONOCYTES PERCENT AUTO 11 % (4-13); Mean Corpuscular HGB 26.9 pg (26.0-34.0); Mean Corpuscular HGB Conc 30.3 g/dL (31.5-36.5); Mean Corpuscular Volume 89 fL (80-100); Mean Platelet Volume 11.2 fL (9.1-12.4); NEUTROPHILS ABSOLUTE AUTO 4.13 K/mm3 (1.96-9.15); NEUTROPHILS PERCENT AUTO 74 % (41-73); Platelet Count 214 K/mm3 (150-400); RDW Coefficient Variation 17.2 % (11.7-14.2); RDW Standard Deviation 56.7 fL (35.1-46.3); Red Blood Cell Count 4.01 M/mm3 (3.80-5.20); White Blood Cell Count 5.56 K/mm3 (4.00-11.30)
[2020-02-23 13:18] LABS: International Normalized Ratio 3.17; Prothrombin Time Results 31.8 Sec (9.7-11.5)
[2020-02-23 13:24] LABS: Alanine Aminotransfer (ALT/SGP 19 U/L (12-78); Albumin, Blood 2.1 g/dL (3.4-5.0); Albumin/Globulin Ratio 0.4 (0.8-1.8); Alk Phos 86 U/L (50-136); Anion Gap 3 mmol/L (6-16); Aspartate Aminotrans (AST/SGOT 28 U/L (12-37); Bilirubin, Total 0.8 mg/dL (0.1-1.0); Blood Urea Nitrogen 23 mg/dL (8-24); Bun/Creatinine Ratio 23.9 (12.0-20.0); CO2, Blood 33 mmol/L (21-32); Calcium, Blood 8.7 mg/dL (8.5-10.1); Chloride, Blood 107 mmol/L (98-108); Creatinine, Blood 0.96 mg/dL (0.40-1.00); Globulin, Blood 5.7 g/dL (2.2-4.0); Glomerular Filtration Rate >60 (60-); Glucose, Blood 141 mg/dL (70-99); Potassium, Blood 4.4 mmol/L (3.5-5.5); Sodium, Blood 143 mmol/L (136-145); Total Protein, Blood 7.8 g/dL (6.4-8.2)
== END | disposition home or self-care (01) ==
LOC: EDSTATUS 10:03 → LAB RH 12:59
PROVIDERS: Family Medicine
DX: I63.50 Cerebral infarction due to unspecified occlusion or stenosis of unspecified cerebral artery (principal); I48.20 Chronic atrial fibrillation, unspecified
CPT/HCPCS: 80053; 83880; 85025; 85610

== ENCOUNTER 2020-03-24 07:04 | Inpatient (IN) | payer OTHER ==
[~2020-03-24] VITALS: Ht 165.1 cm; Wt 124.8 kg
[~2020-03-24 07:04] MED LIST changes: -ADMELOG SO100 UNIT/1 SC; -ASPI81CH PO; -DULO30 PO; -FAMO20 PO; +METO50ER PO; -METOPROLOL SUCC25 MG PO; +PEPCID40 MG PO; -PRINIVIL5 MG PO; +Prinivil10 MG PO; -VICTOZA 3-0.6 MG/0.1
[2020-03-24 07:53] LABS: BASOPHILS ABSOLUTE AUTO 0.04 K/mm3 (0.00-0.23); BASOPHILS PERCENT AUTO 1 % (0-2); EOSINOPHILS ABSOLUTE AUTO 0.25 K/mm3 (0.00-0.68); EOSINOPHILS PERCENT AUTO 5 % (0-6); Hematocrit 34.3 % (33.0-51.0); Hemoglobin 10.7 g/dL (11.5-16.0); IMMATURE GRAN ABSOLUTE AUTO 0.01 K/mm3 (0.00-0.10); IMMATURE GRAN PERCENT AUTO 0 % (0-1); LYMPHOCYTES ABSOLUTE AUTO 0.99 K/mm3 (0.84-5.20); LYMPHOCYTES PERCENT AUTO 18 % (21-46); MONOCYTES PERCENT AUTO 11 % (4-13); Mean Corpuscular HGB 27.9 pg (26.0-34.0); Mean Corpuscular HGB Conc 31.2 g/dL (31.5-36.5); Mean Corpuscular Volume 89 fL (80-100); Mean Platelet Volume 11.6 fL (9.1-12.4); NEUTROPHILS ABSOLUTE AUTO 3.52 K/mm3 (1.96-9.15); NEUTROPHILS PERCENT AUTO 65 % (41-73); Platelet Count 208 K/mm3 (150-400); RDW Coefficient Variation 17.7 % (11.7-14.2); RDW Standard Deviation 57.3 fL (35.1-46.3); Red Blood Cell Count 3.84 M/mm3 (3.80-5.20); White Blood Cell Count 5.41 K/mm3 (4.00-11.30)
[2020-03-24 08:17] LABS: Alanine Aminotransfer (ALT/SGP 17 U/L (12-78); Albumin, Blood 2.2 g/dL (3.4-5.0); Albumin/Globulin Ratio 0.4 (0.8-1.8); Alk Phos 94 U/L (50-136); Anion Gap 8 mmol/L (6-16); Aspartate Aminotrans (AST/SGOT 27 U/L (12-37); Blood Urea Nitrogen 25 mg/dL (8-24); Bun/Creatinine Ratio 26.3 (12.0-20.0); CO2, Blood 28 mmol/L (21-32); Calcium, Blood 8.5 mg/dL (8.5-10.1); Chloride, Blood 105 mmol/L (98-108); Creatinine, Blood 0.95 mg/dL (0.40-1.00); Globulin, Blood 5.6 g/dL (2.2-4.0); Glomerular Filtration Rate >60 (60-); Glucose, Blood 131 mg/dL (70-99); Potassium, Blood 3.9 mmol/L (3.5-5.5); Sodium, Blood 141 mmol/L (136-145); Total Protein, Blood 7.8 g/dL (6.4-8.2); Troponin I <0.015 ng/mL (0.000-0.040)
[2020-03-24] MEDS ORDERED: FURO40 PO (08:49)
[2020-03-24] MEDS ORDERED: PROHEAL PO (09:00)
[2020-03-24] MEDS ORDERED: K-Dur10 MEQ PO (09:02)
[2020-03-24 10:54] LABS: International Normalized Ratio 3.1; Prothrombin Time Results 31.1 Sec (9.7-11.5)
[2020-03-24 11:08] LABS: Base Excess Venous 6.5 mmol/L; Bicarbonate Venous 28.9 mmol/L (24.0-30.0); PCO2 Venous 55.7 mmHg (38-42); pH Blood Venous 7.37 (7.34-7.37)
--- NOTE | 2020-03-24 13:30 | NUR ---
ADMISSION ASSESSMENT: Pt arrived to room [id number] from ER. Pt oriented to self, year and following directions. Pt is slow to respond and seems drowzy. Bipap in place at 25% fio2 and 12/6. Pt denies pain at this time. Appears comfortable. VSS. Pt oriented to room and unit. Bed alarm on. Seizure pads placed. Call light in reach. Denies other needs. Will monitor.
[2020-03-24] MEDS ORDERED: DULO30 PO (15:49)
[2020-03-24] MEDS ORDERED: ASPI81CH PO (15:49)
[2020-03-24] MEDS ORDERED: ACET325 PO (15:52)
[2020-03-24] MEDS ORDERED: Humalog100 UNIT/3 SC (16:15)
[2020-03-24] MEDS ORDERED: VICTOZA 3-0.6 MG/0.1 SC (16:16)
[2020-03-24] MEDS ORDERED: WARF2.5 PO (16:17)
--- NOTE | 2020-03-24 18:07 | NUR ---
shift summary: Pt has been sleeping on bipap since arrival to unit. Pt VSS. No S/S of seizure activity. Stable at this time. Will report to night RN.
--- NOTE | 2020-03-24 22:17 | NUR ---
2000 PT RESTING COMFORTABLY IN BED; CHEERFUL.
[2020-03-25 03:54] LABS: BASOPHILS ABSOLUTE AUTO 0.03 K/mm3 (0.00-0.23); BASOPHILS PERCENT AUTO 1 % (0-2); EOSINOPHILS ABSOLUTE AUTO 0.14 K/mm3 (0.00-0.68); EOSINOPHILS PERCENT AUTO 3 % (0-6); Hemoglobin 10.2 g/dL (11.5-16.0); IMMATURE GRAN ABSOLUTE AUTO 0.01 K/mm3 (0.00-0.10); IMMATURE GRAN PERCENT AUTO 0 % (0-1); LYMPHOCYTES ABSOLUTE AUTO 0.69 K/mm3 (0.84-5.20); LYMPHOCYTES PERCENT AUTO 14 % (21-46); MONOCYTES ABSOLUTE AUTO 0.72 K/mm3 (0.16-1.47); MONOCYTES PERCENT AUTO 14 % (4-13); Mean Corpuscular HGB 27.4 pg (26.0-34.0); Mean Corpuscular HGB Conc 30.9 g/dL (31.5-36.5); Mean Corpuscular Volume 89 fL (80-100); Mean Platelet Volume 11.6 fL (9.1-12.4); NEUTROPHILS ABSOLUTE AUTO 3.45 K/mm3 (1.96-9.15); NEUTROPHILS PERCENT AUTO 68 % (41-73); Platelet Count 102 K/mm3 (150-400); RDW Coefficient Variation 18.1 % (11.7-14.2); RDW Standard Deviation 58.7 fL (35.1-46.3); Red Blood Cell Count 3.72 M/mm3 (3.80-5.20); White Blood Cell Count 5.04 K/mm3 (4.00-11.30)
[2020-03-25 04:11] LABS: International Normalized Ratio 3.4; Prothrombin Time Results 33.9 Sec (9.7-11.5)
[2020-03-25 04:12] LABS: Bun/Creatinine Ratio 26.2 (12.0-20.0); Calcium, Blood 8.8 mg/dL (8.5-10.1); Creatinine, Blood 1.03 mg/dL (0.40-1.00)
--- NOTE | 2020-03-25 04:16 | NUR ---
SHIFT SUMMARY: 69 Y/O OBESE FEMALE RESTED COMFORTABLY ALL SHIFT WHILE WEARING BIPAP ENTIRE SHIFT; TELEMETRY REFLECTS A/FIB PER MARLENA--ORACLE BUSINESS INTELLIGENCE DEVELOPER; DENIES PAIN OR NAUSEA; TOOK ALL MEDS CRUSHED VIA APPLESAUCE BEGINNING SHIFT; CBG NORMAL; ALERT AND ORIENTED X 2, ABLE TO FOLLOW ALL SIMPLE VERBAL COMMANDS; NO SEIZURE ACTIVITY NOTED; SEIZURE PRECAUTIONS MAINTAINED; BED ALARM APPLIED, BED LOW POSITION WITH CALL LIGHT AT SIDE.
--- NOTE | 2020-03-25 06:37 | NUR ---
REPORT RECEIVED FROM JOSLYNRN, ER NURSE; TO PCU 12 PER CART; PT STOOD AND PIVOTED INTO BED; CHEEFUL; DROPLET ISOLATION STARTED PENDING COVID 19 TEST (NOT OBTAINED YET).
--- NOTE | 2020-03-25 08:12 | NUR ---
ASSUMED CARE PT IS ALERT AND TALKATIVE. SHE IS ORTIENTED TO PERSON ONLY. PT IS ON A BIPAP AT 12/6 AND FIO2 25%. SHE IS CALM AND COOPERATIVE WITH CARE. NO NEEDS OR CONERNS AT THIS TIME.
--- NOTE | 2020-03-25 08:51 | NUR ---
WITNESSED PT DESAT INTO 60'S. RT CHANGED BIPAP SETTINGS TO /.
--- NOTE | 2020-03-25 08:53 | NUR ---
DR. THAO CHANGED DIET TO CARDIAC ADA. SHE STATED THAT PT CAN GET OFF NPO DIET. SHE CHANGED LISINOPRIL AND METOPROLOL ORDERS. STATED THAT ONCE PT HR DECREASES SHE CAN BE D/C'D.
--- NOTE | 2020-03-25 10:45 | NUR ---
WELL PULLER HEAD AND OIL WELL SERVICE UNIT OPERATOR AT BEDSIDE. REMOVED BIPAP AND ADMINISTERED MEDS WITH PT ON 3L O3 VIA NC. PT DID NOT DESAT WITH THIS. CALL TO DR THAO WHO STATES SHE WILL WRITE DC ORDERS. DISCUSSED WITH IRAIS IN CARE MANAGEMENT AND SHE IS AWARE THAT PT IS ON 3L AT THIS TIME AND BEDBOUND HERE. IRAIS WORKING ON ARRANGEMENTS WITH FOR DC
--- NOTE | 2020-03-25 11:06 | NUR ---
PT CANNOT SWALLOW PILLS, SHE HAS TO HAVE THEM CRUSHED. PHARMACY CHANGED POTASSIUM TO ORAL LIQUID. RT CHANGED BIPAP SETTINGS TO 14/10, 25% FIO2. PT CURRENTLY OFF BIPAP TO EAT. RT OKAYED A BREAK FROM BIPAP FOR 30 MINUTES AFTER SHE IS DONE EATING.
[2020-03-25] MEDS ORDERED: ALBU2.5V5 INH (12:49)
[2020-03-25] MEDS ORDERED: LEVE500 PO (12:49)
--- NOTE | 2020-03-25 14:20 | NUR ---
EMS CAME TO TAKE PT BACK TO . REPORT CALLED AND GIVEN TO NURSING STAFF. PT WAS ON RA, PIVOT TRANSFERRED TO [facility]. SOB AFTER SO EMS PUT PT ON 2L O2. FORMS PROVIDED. PT'S DAUGHTER HAS BEEN GIVEN UPDATE. NO FURTHER NEEDS OR CONCERNS AT THIS TIME.
== END 2020-03-25 14:21 | DRG 100 ==
LOC: ER 07:04 → PCU 10:34
PROVIDERS: Emergency Medicine; Pharmacist; ADMIT Internal Medicine
PROC: 5A09357 Assistance with Respiratory Ventilation, Less than 24 Consecutive Hours, Continuous Positive Airway Pressure (ICD-10-PCS; principal; 2020-03-24)
DX: G40.409 Other generalized epilepsy and epileptic syndromes, not intractable, without status epilepticus (principal); J96.20 Acute and chronic respiratory failure, unspecified whether with hypoxia or hypercapnia; I48.20 Chronic atrial fibrillation, unspecified; E66.2 Morbid (severe) obesity with alveolar hypoventilation; Z68.42 Body mass index [BMI] 45.0-49.9, adult; I10 Essential (primary) hypertension; E11.9 Type 2 diabetes mellitus without complications; Z87.891 Personal history of nicotine dependence; Z79.4 Long term (current) use of insulin; Z79.01 Long term (current) use of anticoagulants; Z79.82 Long term (current) use of aspirin; K21.9 Gastro-esophageal reflux disease without esophagitis; E78.5 Hyperlipidemia, unspecified; I69.391 Dysphagia following cerebral infarction
CPT/HCPCS: 36415; 70450; 71045; 80048; 80053; 82140; 82330; 82803; 82947; 83605; 83735; 83880; 84100; 84145; 84146; 84484; 85025; 85610; 93005; 93010; 94660; 94762; 96360; 99285-25; A9270-GY; J0610; J1940; J1953; J7030; J7050

== ENCOUNTER → 2020-04-19 | Outpatient (CLI) | payer OTHER ==
[~2020-04-19] MED LIST changes: +ACET325 PO; +ALBU2.5V5 INH; +ASPI81CH PO; +DULO30 PO; +FURO40 PO; +Humalog100 UNIT/3 SC; +K-Dur10 MEQ PO; +LEVE500 PO; +PROHEAL PO; +VICTOZA 3-0.6 MG/0.1 SC; +WARF2.5 PO
[2020-04-19 17:18] LABS: International Normalized Ratio 1.55; Prothrombin Time Results 16.2 Sec (9.7-11.5)
== END | disposition home or self-care (01) ==
LOC: EDSTATUS 11:42 → LAB RH 14:55
PROVIDERS: Family Medicine
DX: I48.20 Chronic atrial fibrillation, unspecified (principal)
CPT/HCPCS: 85610

== ENCOUNTER 2020-10-13 19:53 | Emergency (ER) | payer OTHER ==
[~2020-10-13] VITALS: Ht 167.6 cm; Wt 90.7 kg
[~2020-10-13 19:53] MED LIST changes: +AMOCLA875 PO; +FURO20 PO; +LEVETIRACETAM1000 M1 PO; +LISINOPRIL2.5 MG PO; -Prinivil10 MG PO; -VICTOZA 3-0.6 MG/0.1 SC; +VICTOZA 3-0.6 MG/0.2 SC; -WARF2.5 PO; +WARF5 PO
[2020-10-13 20:19] LABS: BASOPHILS ABSOLUTE AUTO 0.03 K/mm3 (0.00-0.23); BASOPHILS PERCENT AUTO 1 % (0-2); EOSINOPHILS ABSOLUTE AUTO 0.13 K/mm3 (0.00-0.68); EOSINOPHILS PERCENT AUTO 3 % (0-6); Hematocrit 38.6 % (33.0-51.0); Hemoglobin 12.6 g/dL (11.5-16.0); IMMATURE GRAN ABSOLUTE AUTO 0.01 K/mm3 (0.00-0.10); IMMATURE GRAN PERCENT AUTO 0 % (0-1); LYMPHOCYTES ABSOLUTE AUTO 0.98 K/mm3 (0.84-5.20); LYMPHOCYTES PERCENT AUTO 21 % (21-46); MONOCYTES ABSOLUTE AUTO 0.45 K/mm3 (0.16-1.47); MONOCYTES PERCENT AUTO 10 % (4-13); Mean Corpuscular HGB 29.7 pg (26.0-34.0); Mean Corpuscular HGB Conc 32.6 g/dL (31.5-36.5); Mean Corpuscular Volume 91 fL (80-100); Mean Platelet Volume 10.5 fL (9.1-12.4); NEUTROPHILS ABSOLUTE AUTO 3.01 K/mm3 (1.96-9.15); NEUTROPHILS PERCENT AUTO 65 % (41-73); Platelet Count 190 K/mm3 (150-400); RDW Coefficient Variation 16.3 % (11.7-14.2); RDW Standard Deviation 54.1 fL (35.1-46.3); Red Blood Cell Count 4.24 M/mm3 (3.80-5.20); White Blood Cell Count 4.61 K/mm3 (4.00-11.30)
[2020-10-13 20:35] LABS: Alanine Aminotransfer (ALT/SGP 21 U/L (12-78); Albumin, Blood 2.5 g/dL (3.4-5.0); Albumin/Globulin Ratio 0.5 (0.8-1.8); Alk Phos 89 U/L (50-136); Anion Gap 9 mmol/L (6-16); Aspartate Aminotrans (AST/SGOT 40 U/L (12-37); Bilirubin, Total 0.7 mg/dL (0.1-1.0); Blood Urea Nitrogen 26 mg/dL (8-24); Bun/Creatinine Ratio 27.5 (12.0-20.0); CO2, Blood 23 mmol/L (21-32); Calcium, Blood 9.1 mg/dL (8.5-10.1); Chloride, Blood 108 mmol/L (98-108); Creatinine, Blood 0.94 mg/dL (0.40-1.00); Globulin, Blood 5.5 g/dL (2.2-4.0); Glomerular Filtration Rate >60 (60-); Glucose, Blood 109 mg/dL (70-99); Potassium, Blood 3.8 mmol/L (3.5-5.5); Sodium, Blood 140 mmol/L (136-145)
[2020-10-13 20:38] LABS: Source, Urine Catheter
[2020-10-13 20:50] LABS: Blood, Urine 3+ (Neg); Glucose Qualitative, Urine 1+ (Neg); Ketones, Urine 1+ (Neg); Leukocyte Esterase, Urine Neg (Neg); Nitrite, Urine Neg (Neg); Protein, Urine 4+ (Neg); Specific Gravity, Urine 1.025 (1.003-1.022); Urobilinogen, Urine 3+ (Normal)
[2020-10-13 20:51] LABS: Appearance, Urine Cloudy (Clear); Bilirubin, Urine 1+ (Neg); Color, Urine Amber (P-Yellow)
[2020-10-13 20:52] LABS: Red Blood Cells, Urine 0-2 /hpf (0-2); Squamous Epithelial Cells Rare /hpf (Few); White Blood Cells, Urine 0-2 /hpf (0-5)
[2020-10-13 20:53] LABS: Amorphous Mod (0-Heavy); Bacteria Rare /hpf
[2020-10-13 23:09] LABS: Influenza A, PCR Negative (NEGATIVE); Influenza B, PCR Negative (NEGATIVE); Resp Syncytial Virus, PCR Negative (NEGATIVE); SARS-Cov-2 (COVID-19) PCR, MMC Negative (NEGATIVE)
[2020-10-13] MEDS ORDERED: DOXY100 PO (23:29)
== END 2020-10-14 02:01 | disposition home or self-care (01) ==
LOC: ER 19:53
PROVIDERS: Emergency Medicine
DX: J18.9 Pneumonia, unspecified organism (principal); I10 Essential (primary) hypertension; I48.91 Unspecified atrial fibrillation; E11.9 Type 2 diabetes mellitus without complications; E78.5 Hyperlipidemia, unspecified; K21.9 Gastro-esophageal reflux disease without esophagitis; Z20.828 Contact with and (suspected) exposure to other viral communicable diseases; Z79.01 Long term (current) use of anticoagulants; Z79.899 Other long term (current) drug therapy; Z88.4 Allergy status to anesthetic agent; Z86.73 Personal history of transient ischemic attack (TIA), and cerebral infarction without residual deficits; Z87.891 Personal history of nicotine dependence
CPT/HCPCS: 0241U; 36415; 71045; 80053; 81001; 85025; 99284-25

== ENCOUNTER 2020-11-15 17:51 | Emergency (ER) | payer OTHER ==
[~2020-11-15] VITALS: Ht 167.6 cm; Wt 99.8 kg
[~2020-11-15 17:51] MED LIST changes: +DOXY100 PO
[2020-11-15 19:38] LABS: BASOPHILS ABSOLUTE AUTO 0.03 K/mm3 (0.00-0.23); BASOPHILS PERCENT AUTO 1 % (0-2); EOSINOPHILS ABSOLUTE AUTO 0.12 K/mm3 (0.00-0.68); EOSINOPHILS PERCENT AUTO 4 % (0-6); Hematocrit 40.8 % (33.0-51.0); Hemoglobin 12.9 g/dL (11.5-16.0); IMMATURE GRAN ABSOLUTE AUTO 0.01 K/mm3 (0.00-0.10); IMMATURE GRAN PERCENT AUTO 0 % (0-1); LYMPHOCYTES ABSOLUTE AUTO 0.76 K/mm3 (0.84-5.20); LYMPHOCYTES PERCENT AUTO 26 % (21-46); MONOCYTES ABSOLUTE AUTO 0.25 K/mm3 (0.16-1.47); MONOCYTES PERCENT AUTO 9 % (4-13); Mean Corpuscular HGB 28.9 pg (26.0-34.0); Mean Corpuscular HGB Conc 31.6 g/dL (31.5-36.5); Mean Corpuscular Volume 91 fL (80-100); Mean Platelet Volume 10.9 fL (9.1-12.4); NEUTROPHILS ABSOLUTE AUTO 1.77 K/mm3 (1.96-9.15); NEUTROPHILS PERCENT AUTO 60 % (41-73); Platelet Count 160 K/mm3 (150-400); RDW Coefficient Variation 16.9 % (11.7-14.2); Red Blood Cell Count 4.47 M/mm3 (3.80-5.20); White Blood Cell Count 2.94 K/mm3 (4.00-11.30)
[2020-11-15 19:51] LABS: International Normalized Ratio 1.6; Prothrombin Time Results 16.7 Sec (9.7-11.5)
[2020-11-15 20:43] LABS: Alanine Aminotransfer (ALT/SGP 20 U/L (12-78); Albumin, Blood 2.1 g/dL (3.4-5.0); Albumin/Globulin Ratio 0.4 (0.8-1.8); Alk Phos 72 U/L (50-136); Anion Gap 2 mmol/L (6-16); Aspartate Aminotrans (AST/SGOT 38 U/L (12-37); Bilirubin, Total 0.8 mg/dL (0.1-1.0); Blood Urea Nitrogen 19 mg/dL (8-24); Bun/Creatinine Ratio 26.2 (12.0-20.0); CO2, Blood 31 mmol/L (21-32); Calcium, Blood 8.6 mg/dL (8.5-10.1); Chloride, Blood 108 mmol/L (98-108); Creatinine, Blood 0.72 mg/dL (0.40-1.00); Globulin, Blood 4.9 g/dL (2.2-4.0); Glomerular Filtration Rate >60 (60-); Glucose, Blood 147 mg/dL (70-99); Sodium, Blood 141 mmol/L (136-145)
[2020-11-15 20:45] LABS: Calcium, Ionized (POC) 1.01 mmol/L (1.10-1.46); Chloride (POC) 104 mmol/L (98-108); Creatinine (POC) 0.9 mg/dL (0.6-1.0); Glucose (ISTAT POC) 140 mg/dL (70-99); Hemoglobin (POC) 13.9 g/dL (12.0-16.0); Sodium (POC) 138 mmol/L (135-148); Total CO2 (POC) 33 mmol/L (21-32)
== END 2020-11-15 22:30 | disposition home or self-care (01) ==
LOC: ER 17:51
PROVIDERS: Physician Assistant
DX: M79.604 Pain in right leg (principal); I48.91 Unspecified atrial fibrillation; I10 Essential (primary) hypertension; E11.9 Type 2 diabetes mellitus without complications; I25.10 Atherosclerotic heart disease of native coronary artery without angina pectoris; E78.5 Hyperlipidemia, unspecified; Z88.4 Allergy status to anesthetic agent; Z79.899 Other long term (current) drug therapy
CPT/HCPCS: 36415; 80047; 80053; 85014; 85025; 85610; 93922; 99284-25

== ENCOUNTER 2020-11-29 10:52 | Inpatient (IN) | payer OTHER ==
[~2020-11-29] VITALS: Ht 170.2 cm; Wt 108.1 kg
[2020-11-29 11:46] LABS: Source, Urine Catheter
[2020-11-29 11:55] LABS: Appearance, Urine Hazy (Clear); Blood, Urine 1+ (Neg); Color, Urine Amber (P-Yellow); Glucose Qualitative, Urine Neg (Neg); Ketones, Urine 1+ (Neg); Leukocyte Esterase, Urine 1+ (Neg); Nitrite, Urine Pos (Neg); Protein, Urine 4+ (Neg); Specific Gravity, Urine 1.025 (1.003-1.022); Urobilinogen, Urine 3+ (Normal)
[2020-11-29 12:08] LABS: Bilirubin, Urine 2+ (Neg)
[2020-11-29 12:12] LABS: Bacteria Mod /hpf; Squamous Epithelial Cells Mod /hpf (Few)
[2020-11-29 12:13] LABS: Amorphous Heavy (0-Heavy)
[2020-11-29 13:29] LABS: BASOPHILS ABSOLUTE AUTO 0.01 K/mm3 (0.00-0.23); BASOPHILS PERCENT AUTO 0 % (0-2); EOSINOPHILS PERCENT AUTO 0 % (0-6); Hematocrit 41.1 % (33.0-51.0); Hemoglobin 13.1 g/dL (11.5-16.0); IMMATURE GRAN ABSOLUTE AUTO 0.02 K/mm3 (0.00-0.10); IMMATURE GRAN PERCENT AUTO 0 % (0-1); LYMPHOCYTES ABSOLUTE AUTO 0.78 K/mm3 (0.84-5.20); LYMPHOCYTES PERCENT AUTO 15 % (21-46); MONOCYTES ABSOLUTE AUTO 0.53 K/mm3 (0.16-1.47); MONOCYTES PERCENT AUTO 10 % (4-13); Mean Corpuscular HGB 29.9 pg (26.0-34.0); Mean Corpuscular HGB Conc 31.9 g/dL (31.5-36.5); Mean Corpuscular Volume 94 fL (80-100); NEUTROPHILS ABSOLUTE AUTO 3.97 K/mm3 (1.96-9.15); NEUTROPHILS PERCENT AUTO 75 % (41-73); Platelet Count 151 K/mm3 (150-400); RDW Coefficient Variation 17.3 % (11.7-14.2); RDW Standard Deviation 59.6 fL (35.1-46.3); Red Blood Cell Count 4.38 M/mm3 (3.80-5.20); White Blood Cell Count 5.31 K/mm3 (4.00-11.30)
[2020-11-29 13:49] LABS: Albumin/Globulin Ratio 0.4 (0.8-1.8); Bilirubin, Total 1.4 mg/dL (0.1-1.0); Bun/Creatinine Ratio 30.9 (12.0-20.0); Calcium, Blood 8.3 mg/dL (8.5-10.1); Creatinine, Blood 1.23 mg/dL (0.40-1.00); Globulin, Blood 4.5 g/dL (2.2-4.0); Potassium, Blood 4.1 mmol/L (3.5-5.5); Total Protein, Blood 6.5 g/dL (6.4-8.2); Troponin I 0.053 ng/mL (0.000-0.040)
[2020-11-29] MEDS ORDERED: FUROSEMIDE20 MG PO (15:27)
[2020-11-29 16:42] LABS: International Normalized Ratio 1.42; Prothrombin Time Results 14.9 Sec (9.7-11.5)
[2020-11-29 17:57] LABS: Base Excess Venous -3.9 mmol/L; PCO2 Venous 66.9 mmHg (38-42); PO2 Venous 78.5 mmHg (38-42); pH Blood Venous 7.17 (7.34-7.37)
[2020-11-30 04:31] LABS: Base Excess Venous -5.2 mmol/L; PCO2 Venous 64.8 mmHg (38-42); PO2 Venous 55.3 mmHg (38-42); pH Blood Venous 7.16 (7.34-7.37)
[2020-11-30 04:36] LABS: BASOPHILS ABSOLUTE AUTO 0.01 K/mm3 (0.00-0.23); BASOPHILS PERCENT AUTO 0 % (0-2); EOSINOPHILS PERCENT AUTO 0 % (0-6); Hematocrit 45.2 % (33.0-51.0); Hemoglobin 13.7 g/dL (11.5-16.0); IMMATURE GRAN ABSOLUTE AUTO 0.02 K/mm3 (0.00-0.10); IMMATURE GRAN PERCENT AUTO 0 % (0-1); LYMPHOCYTES PERCENT AUTO 7 % (21-46); MONOCYTES ABSOLUTE AUTO 0.72 K/mm3 (0.16-1.47); MONOCYTES PERCENT AUTO 9 % (4-13); Mean Corpuscular HGB 29.5 pg (26.0-34.0); Mean Corpuscular HGB Conc 30.3 g/dL (31.5-36.5); Mean Corpuscular Volume 97 fL (80-100); Mean Platelet Volume 11.1 fL (9.1-12.4); NEUTROPHILS PERCENT AUTO 84 % (41-73); NRBC ABSOLUTE 0.02 K/mm3 (0.00-0.02); NRBC Auto 0.3 /100 WBC (0.0-0.2); Platelet Count 177 K/mm3 (150-400); RDW Coefficient Variation 17.5 % (11.7-14.2); RDW Standard Deviation 61.9 fL (35.1-46.3); Red Blood Cell Count 4.65 M/mm3 (3.80-5.20); White Blood Cell Count 7.75 K/mm3 (4.00-11.30)
[2020-11-30 04:50] LABS: International Normalized Ratio 1.72; Prothrombin Time Results 17.8 Sec (9.7-11.5)
[2020-11-30 05:02] LABS: Albumin, Blood 2.2 g/dL (3.4-5.0); Albumin/Globulin Ratio 0.5 (0.8-1.8); Bilirubin, Total 1.7 mg/dL (0.1-1.0); Bun/Creatinine Ratio 24.4 (12.0-20.0); Creatinine, Blood 1.64 mg/dL (0.40-1.00); Globulin, Blood 4.8 g/dL (2.2-4.0); Potassium, Blood 4.9 mmol/L (3.5-5.5)
--- NOTE | 2020-11-30 07:23 | NUR ---
2115: PT ARRIVES TO ICU 15 VIA GURNEY FROM ER. SHE IS MINIMALLY RESPONSIVE WITH TURNS FOR EXTRA LINEN REMOVAL, MOANING IS NOTED, EXTREMITIES FLACCID AT THIS TIME. PRESSURE NOTED HYPOTENSIVE WITH LEVOPHED AT 16 MCG/MIN ON ARRIVAL, LEVOPHED INCREASED TO 18 MCG/MIN, DAUGHTER AND DAUGHTER IN LAW AT BEDSIDE, DISCUSSED PLAN TO CALL MD FOR FURTHER ORDERS, AFIB WITH RVR IS NOTED, RATES UP TO 180S AT TIMES, WILL NOTIFY DR SHOEMAKER. LUNGS ARE CLEAR BILAT UPPER LOBES, MARKEDLY DIM MID TO BASES, TIDAL VOLUMES 250-300 PER BIPAP, SATS LOW 90S WITH 6 LITER BLEED IN. WOUNDS NOTED, SEE PHOTOS. 2215: SPOKE WITH DR SHOEMAKER REGARDING HEART RATE AND BLOOD PRESSURE. ORDERS FOR NS 500 ML BOLUS X 2, IF INEFFECTIVE, MAY START VASOPRESSIN, IF HEART RATE CONTINUES MARKEDLY ELEVATED FOLLOWING THESE, MAY START AMIODARONE. NS RATE INCREASED TO 500 ML/HR FOR 500 ML VIA INFUSION PUMP, WILL MONITOR. 2315: HYPOTENSION AND AFIB WITH RVR CONTINUE, SECOND BOLUS STARTED INFUSING 0015: LEVOPHED HAS BEEN TITRATED UP SINCE ARRIVAL TO 20 MCG/MIN OF THIS TIME, 2ND BOLUS IS COMPLETE, VASOPRESSIN STARTED INFUSING PER ORDERS 0045: BP IMPROVING, HEART RATE REMAINS ELEVATED, SEE VS FLOW SHEET, LEVOPHED TITRATED DOWN TO 15 MCG/MIN. WOUNDS CLEANSED WITH WOUND BUSINESS MANAGEMENT ANALYST AND 4X4 GAUZE, PATTED DRY AND MEPILEX DRESSINGS APPLIED. 0105: CENTRAL LINE TO RIGHT CHEST DRESSING CHANGED SECONDARY TO PLACEMENT OF SUTURES, STATLOCK APPLIED, STERILE TECHNIQUE MAINTAINED THROUGHOUT DRESSING CHANGE. PT TOLERATED WELL. 0110: REMAINS TACHYCARDIC WITH RATES GREATER THAN 140, WILL ADMIN AMIODARONE WHEN AVAILABLE FROM PHARMACY 0140: AMIODARONE INFUSING, HEART RATE IMPROVING, BP IMPROVING. PT EXTREMITIES REMAIN FLACCID, RESPONDS TO PAINFUL STIMULI WITH MOANING. 0330: BP CONTINUES IMPROVING, LEVOPHED TITRATED DOWN. 0500: PT NOTED TO SPONT MOVE BILAT HANDS, OPENS EYES WHEN SPOKEN TO, DOES NOT FOLLOW COMMANDS AT THIS TIME, CONTINUES WITH LESS THAN 20 ML URINE OUTPUT FOR THIS SHIFT. 0600: SPOKE WITH DR SHOEMAKER REGARDING URINE OUTPUT, NS BOLUSES, VASOPRESSIN, AMIODARONE GTT, CONTINUED ALTERED MENTAL STATUS, CURRENT VITAL SIGNS, WELL AM LABS. NO NEW ORDERS AT THIS TIME.
--- NOTE | 2020-11-30 08:00 | NUR ---
PT OPENED EYES WHEN RN CALLED HER NAME. PT MOANING. IT APPEARS THAT SHE HAS VOMITIED INTO THE BIPAP MASK. ORAL CARE DONE AND BIPAP MASKED CLEANED AND REPLACED. PT IS GENERALLY WEAK AND IS DISORIENTED. PT REPORTS THAT SHE HURTS ALL OVER. ECG SHOWS AF WITH RATE 90-110'S. MAP TRENDING>65 WITH VASOPRESSIN @0.04 UNITS AND LEVOPHED DRIP @ 12 MCG/MIN. PT APPEARS MOTTLED TO UPPER AND LOWER EXTREMITIES-WITH INCREASED DISCOLORATION TO LOWER EXTREMITIES. LUNGS TIGHT THROUGH OUT. RIGHT LUNG WITH SCATTERED COARSE, RHONCHI. LEFT SIDE VERY DIMINISHED AND TIGHT WITH FRICTION RUB ASCULTATED. BIPAP 18/12-RR 28-32. SATS 89-91% ON FIO2 30% PT IS NPO. YEAST LIKE RASH NOTED UNDER BREASTS, PANUS, AND SKIN FOLDS. PT HAS SCATTERED WOUNDS THAT HAD PHOTOS TAKEN ON ADMIT. ALL FOAM DRESSINGS ARE C/D/I. COCCYX AND BUTTOCK RED, BUT NO BREAKDOWN. FOAM DRESSING PLACED PREVENTATIVE MEASURE. ANTICIPATE TRANSITIONING TO COMFORT CARE LATER TODAY. WILL CONTACT PALLIATIVE CARE AND PT FAMILY.
--- NOTE | 2020-11-30 10:39 | NUR ---
PT MOANING WHEN RN ENTERED THE ROOM. MED WITH MORPHINE 2 MG IVP X1, THEN REPOSITONED PT TO COMFORT ON LEFT SIDE. MAP TRENDING LESS THAN 60-DESPITE LEVOPHED @ 18 MCG/MIN-TITRATED LEVOPHED UP TO 20 MCG/MIN. PT FAMILY TO BE HERE AT 1100 TO MAKE PT COMFORT CARE.
--- NOTE | 2020-11-30 11:34 | NUR ---
PT FAMILY HAS ARRIVED. DR. SHOEMAKER MADE AWARE. PALLIATIVE CARE AND PASTORAL CARE PRESENT. WILL MED FOR PAIN AND THEN REMOVE BOTH BIPAP AND PRESSORS.
--- NOTE | 2020-11-30 11:41 | NUR ---
Spiritual care note: I met pt and family several years ago on previous admission. We had an easy rapport and they were appreciative of prayer and emotional support. Dtr and her partner are at bedside, tearful, but approriate. Pt is non-responsive. Dtr states that pt has been preparing them for the past week for her . Pt even made "DNR and goodbye videos" for friends and family. Affirmed obvious love and provided prayer at their request. Pt being medicated for discomfort and bi-pap removed. I will stay close by.
--- NOTE | 2020-11-30 11:45 | NUR ---
PT MED WITH MORPHINE 2 MG IVP X 1. VASOPRESSIN, LEVOPHED, AND AMIODARONE DRIPS DISCONTINUED. BIPAP MASKE OFF. PT FAMILY MEMBERS AT BEDSIDE.
--- NOTE | 2020-11-30 11:48 | NUR ---
Family at bedside pt transitioned to comfort measures.
--- NOTE | 2020-11-30 12:20 | NUR ---
PT . FAMILY AT BEDSIDE. PT BELONGINGS SENT HOME WITH PT DAUGHTER. PARTY HOST ROBY AND NURSING REFRIGERATING TECHNICIAN NOTIFIED.
--- NOTE | 2020-11-30 20:41 | NUR ---
[facility] DONE, GARCIA AND PERIPHERAL IV REMOVED AND YELLOW GOWN PLACED ON PATIENT. MARIELLE DE LEON CALLING [facility] FOR TRANSPORT.
== END 2020-11-30 12:20 | DRG 871 ==
LOC: ER 10:52 → ICUW 16:05 → ERHOLD 16:05 → ICUW 21:10
PROVIDERS: Emergency Medicine; Internal Medicine Pulmonary Disease; ADMIT Internal Medicine
PROC: 05H533Z Insertion of Infusion Device into Right Subclavian Vein, Percutaneous Approach (ICD-10-PCS; principal; 2020-11-29)
PROC: 3E033XZ Introduction of Vasopressor into Peripheral Vein, Percutaneous Approach (ICD-10-PCS; 2020-11-29)
PROC: 5A09357 Assistance with Respiratory Ventilation, Less than 24 Consecutive Hours, Continuous Positive Airway Pressure (ICD-10-PCS; 2020-11-29)
DX: A41.9 Sepsis, unspecified organism (principal); R65.21 Severe sepsis with septic shock; G93.41 Metabolic encephalopathy; I50.31 Acute diastolic (congestive) heart failure; J96.91 Respiratory failure, unspecified with hypoxia; J96.92 Respiratory failure, unspecified with hypercapnia; K72.00 Acute and subacute hepatic failure without coma; N17.9 Acute kidney failure, unspecified; N39.0 Urinary tract infection, site not specified; Z51.5 Encounter for palliative care; Z79.01 Long term (current) use of anticoagulants; I69.391 Dysphagia following cerebral infarction; E86.0 Dehydration; E78.5 Hyperlipidemia, unspecified; E11.9 Type 2 diabetes mellitus without complications; Z87.891 Personal history of nicotine dependence; I27.20 Pulmonary hypertension, unspecified; Z66 Do not resuscitate; I48.91 Unspecified atrial fibrillation
CPT/HCPCS: 36415; 36556; 51702; 71045; 74177; 80053; 81001; 82803; 82947; 83605; 83690; 83880; 84145; 84484; 85025; 85610; 85730; 87040; 87086; 93005; 93010; 93306; 94660; 96361-59; 96365-59; 96366-59; 96375-59; 99285-25; A9270; C1751; J0282; J0696; J1170; J1953; J1956; J2060; J2270; J2405; J7030; J7040; J7060; P9046; P9612; Q9967